=== PATIENT | male | born 1950 | race Caucasian/White ===

== ENCOUNTER → 2018-01-16 | Day surgery (SDC) | payer MEDICARE, OTHER ==
[~2018-01-16] MED LIST: ASPIRIN81 MG PO; FENTANYL CITRATE/PF 100MCG/2 ML INJ ONE; LISINOPRIL10 MG PO; MIDAZOLAM HCL 2 MG/2 ML VIAL ONE; OR PHACO EYE KIT ONE; PREOP PHACO EYE KIT ONE
--- OUTSIDE RECORDS SUMMARY | 2018-01-16 12:23 | XMS REPORT | Summary of Care ---
Author Author Fadia Montes M.A. Unknown Address Unknown Phone Unavailable Care Team Providers Care Improvement Specialist Name Role Phone BERTA Rojas, YAHAIRA Unavailable Unavailable OCTAVIA MANCIA, TOMER Iglesias Unavailable Unavailable OCTAVIA Rojas, TOMER [place] Unavailable Unavailable Unavailable Functional Status Name Dates Details Functional status health issues are not documented Status: Name Dates Details Cognitive status health issues are not documented Status: Problems Name Dates Details Tendonitis (726.90, M77.9) Status: Active Sleep apnea (780.57, G47.30) Status: Active Chronic low back pain (724.2, M54.5) Status: Active Insomnia (780.52, G47.00) Status: Active Preoperative examination (V72.84, Z01.818) Status: Active Pre-diabetes (790.29, R73.03) Status: Active Abnormal EKG (794.31, R94.31) Status: Active Helicobacter pylori infection (041.86, A04.8) Status: Active Essential hypertension, benign (401.1, I10) Status: Active Hearing loss, unspecified hearing loss type, unspecified laterality (389.9, H91.90) Status: Active Medications Name Dates Details Lisinopril 20 MG Oral Tablet TAKE 1 TABLET BY MOUTH DAILY. PATIENT NEEDS OFFICE VISIT Quantity: 7 YAHAIRA HAMPTON M.D. * Start : 29-Sep-2014 Active Aspirin 81 MG TABS TAKE 1 TABLET DAILY. * Refills: 0 Active Omeprazole 20 MG Oral Capsule Delayed Release TAKE 1 CAPSULE BY MOUTH TWICE DAILY * Quantity: 30 Refills: 0 BERTA Rojas, YAHAIRA * Start : 10-Jan-2018 Active Zolpidem Tartrate 10 MG Oral Tablet TAKE 1 TABLET AT BEDTIME NEEDED. * Quantity: 30 Refills: 2 YAHAIRA HAMPTON M.D. * Start : 21-Sep-2015 End : 27-Mar-2018 Active Allergies and Adverse Reactions Name Dates Details No Known Drug Allergies (Allergy) Status: Active Past Medical History Name Dates Details History of essential hypertension (V12.59, Z86.79) Status: Resolved History of Hernia (553.9, K46.9) Status: Resolved History of Prostate cancer (185, C61) Status: Resolved Procedures Procedure Dates Details EKG (In Office) Date: 25-Dec-2017 History of Tonsillectomy With Adenoidectomy Completed History of Hernia Repair Completed History of Prostate Surgery Completed History of Rotator Cuff Repair Completed History of Back Surgery Completed Immunization Name Dates Details Fluzone INJ Lot #: [id number] on: 16-Sep-2013 Influenza on: 27-Aug-2014 Family History Name Dates Details No pertinent family history Status: Active Name Dates Details Family history of cerebrovascular accident (V17.1, Z82.3) Status: Active Social History Name Dates Details - Status: Name Dates Details Never smoker Vital Signs Date Test Result Details 92-[id number]:51 BP Systolic 143 mm[Hg] Status: Comments: Location: LUE; Position: Sitting BP Diastolic 75 mm[Hg] Status: Comments: Location: LUE; Position: Sitting Height 69 in Status: Weight 210.5625 lb Status: Body Mass Index Calculated 31.09 kg/m2 Status: Body Surface Area Calculated 2.11 m2 Status: Temperature 98.6 f Status: Comments: Method: Temporal Heart Rate 65 /min Status: Respiration Rate 16 /min Status: Physical Findings 0 Status: Comments: Pain Scale 14-[id number]:32 BP Systolic 138 mm[Hg] Status: BP Diastolic 75 mm[Hg] Status: Heart Rate 65 /min Status: 50-Ewv-399528:30 BP Systolic 140 mm[Hg] Status: Comments: Location: LUE; Position: Sitting BP Diastolic 75 mm[Hg] Status: Comments: Location: LUE; Position: Sitting Height 69 in Status: Weight 215 lb Status: Body Mass Index Calculated 31.75 kg/m2 Status: Body Surface Area Calculated 2.13 m2 Status: Temperature 98 f Status: Comments: Method: Temporal Heart Rate 64 /min Status: Respiration Rate 16 /min Status: Results Date Description Value Details [id number]-[id number] [[facility]] BASIC METABOLIC PANEL W/EGFR GLUCOSE 105 mg/dl (Above high threshold) Range: 65-99 Comments: Fasting reference interval For someone without known diabetes, a glucose valuebetween 100 and 125 mg/dL is consistent withprediabetes and should be confirmed with afollow-up test. UREA NITROGEN (BUN) 18 mg/dl (Normal) Range: 7-25 CREATININE 0.96 mg/dl (Normal) Range: 0.70-1.25 Comments: For patients >49 years of age, the reference limitfor Creatinine is approximately 13% higher for peopleidentified as -[place]. eGFR NON- 83 {ML/MIN/1.7} (Normal) Range: > OR=60 eGFR 96 {ML/MIN/1.7} (Normal) Range: > OR=60 BUN/CREATININE RATIO NOT APPLICABLE {CALC} Range: 6-22 SODIUM 141 mmol/L (Normal) Range: 135-146 POTASSIUM 4.6 mmol/L (Normal) Range: 3.5-5.3 CHLORIDE 104 mmol/L (Normal) Range: 98-110 CARBON DIOXIDE 30 mmol/L (Normal) Range: 20-31 CALCIUM 9.3 mg/dl (Normal) Range: 8.6-10.3 85-Vat-[id number]:30 [[facility]] CBC (INCLUDES DIFF/PLT) WHITE BLOOD CELL COUNT 4.4 {Thousand/u} (Normal) Range: 3.8-10.8 RED BLOOD CELL COUNT 4.67 {Million/uL} (Normal) Range: 4.20-5.80 HEMOGLOBIN 14.9 g/dl (Normal) Range: 13.2-17.1 HEMATOCRIT 43.7 % (Normal) Range: 38.5-50.0 MCV 93.6 fL (Normal) Range: 80.0-100.0 MCH 31.9 pg (Normal) Range: 27.0-33.0 MCHC 34.1 g/dl (Normal) Range: 32.0-36.0 RDW 12.5 % (Normal) Range: 11.0-15.0 PLATELET COUNT 181 {Thousand/u} (Normal) Range: 140-400 MPV 11.0 fL (Normal) Range: 7.5-12.5 ABSOLUTE NEUTROPHILS 3247 {cells/uL} (Normal) Range: 6197-2993 ABSOLUTE LYMPHOCYTES 620 {cells/uL} (Below low threshold) Range: 850-3900 ABSOLUTE MONOCYTES 440 {cells/uL} (Normal) Range: 200-950 ABSOLUTE EOSINOPHILS 62 {cells/uL} (Normal) Range: 15-500 ABSOLUTE BASOPHILS 31 {cells/uL} (Normal) Range: 0-200 NEUTROPHILS 73.8 % (Normal) LYMPHOCYTES 14.1 % (Normal) MONOCYTES 10.0 % (Normal) EOSINOPHILS 1.4 % (Normal) BASOPHILS 0.7 % (Normal) 01-Hyb-[id number]:30 [[facility]] HEMOGLOBIN A1c Comments: REPORT COMMENT:FASTING:YES HEMOGLOBIN A1c 5.0 {%_of_total} (Normal) Range: <5.7 Comments: For the purpose of screening for the presence ofdiabetes: <5.7% Consistent with the absence of diabetes5.7-6.4% Consistent with increased risk for diabetes (prediabetes)> or=6.5% Consistent with diabetes This assay result is consistent with a decreased riskof diabetes. Currently, no consensus exists regarding use ofhemoglobin A1c for diagnosis of diabetes in children. According to [place] Diabetes Association (ADA)guidelines, hemoglobin A1c <7.0% represents optimalcontrol in non- diabetic patients. Differentmetrics may apply to specific patient populations. Standards of Medical Care in Diabetes(ADA). 28-Dec-20178:10 [[facility]] BASIC METABOLIC PANEL W/EGFR Basic Metabolic Panel Cancel Reason: Ordered In Error 28-Dec-20178:10 [[facility]] CBC (INCLUDES DIFF/PLT) CBC (INCLUDES DIFF/PLT) Cancel Reason: Ordered In Error 28-Dec-20178:10 [[facility]] HEMOGLOBIN A1c HEMOGLOBIN A1c Cancel Reason: Ordered In Error Plan of Care Name Dates Details Planned Observations Planned Goals not documented Instructions Name Dates Details Instructions not documented Encounters Appointment; YAHAIRA HAMPTON M.D. Encounter Diagnosis: Problem not documented On: 26-Jun-2017 13:00 Appointment; MONICA NATHAN P.A. Encounter Diagnosis: Problem not documented On: 25-Dec-2017 11:30 Appointment; YAHAIRA HAMPTON M.D. Encounter Diagnosis: Problem not documented On: 27-Dec-2017 11:00
== END | disposition home or self-care (01) ==
LOC: OR 12:20
PROVIDERS: ATTEND Ophthalmology
DX: H25.11 Age-related nuclear cataract, right eye (principal); I10 Essential (primary) hypertension; R73.09 Other abnormal glucose; R94.31 Abnormal electrocardiogram [ECG] [EKG]; Z79.82 Long term (current) use of aspirin
CPT/HCPCS: 66984; J2250; V2632

== ENCOUNTER → 2018-01-30 | Day surgery (SDC) | payer MEDICARE, OTHER ==
--- OUTSIDE RECORDS SUMMARY | 2018-01-30 10:28 | XMS REPORT | Summary of Care ---
Author Author YAHAIRA HAMPTON M.D. Unknown Address [facility] Phone Unavailable Care Team Providers Care Maxillofacial Pathology Name Role Phone YAHAIRA HAMPTON M.D. Unavailable Unavailable OCTAVIA MANCIA, TOMER Iglesias Unavailable Unavailable TOMER DUDLEY M.D. Unavailable Unavailable BERTA MANCIA, YAHAIRA Arana Unavailable Unavailable Unavailable Unavailable Functional Status Name Dates [...] Active Abnormal EKG (794.31, R94.31) Status: Active Essential hypertension, benign (401.1, I10) Status: Active Hearing loss, unspecified hearing loss type, unspecified laterality (389.9, H91.90) Status: Active Helicobacter pylori infection (041.86, A04.8) Status: Active Hiatal hernia (553.3, K44.9) Status: Active Medications Name Dates Details Lisinopril [...] Name Dates Details Fluzone INJ Lot #: [id number] on: 16-Sep-2013 Influenza on: 27-Aug-2014 Family History Name Dates Details No pertinent family history Status: Active Name Dates Details Family history of cerebrovascular accident (V17.1, Z82.3) Status: Active Social History Name Dates Details - Status: Name Dates Details Never smoker Vital Signs Date Test Result Details [id number]-[id number] BP Systolic 131 mm[Hg] Status: Comments: Location: LUE; Position: Sitting BP Diastolic 87 mm[Hg] Status: Comments: Location: LUE; Position: Sitting Height 69 in Status: Weight 214.3125 lb Status: Body Mass Index Calculated 31.65 kg/m2 Status: Body Surface Area Calculated 2.13 m2 Status: Temperature 97.9 f Status: Comments: Method: Temporal Heart Rate 68 /min Status: Respiration Rate 16 /min Status: Physical Findings 0 Status: Comments: Pain Scale Results Date Description Value Details Results not documented Plan of Care Name Dates Details Planned Observations Planned Goals not documented Planned Encounters Gastroenterology Referral Appointment; EVA WHITE On: 02-Mar-2018 14:00 Appointment; TOMER DÍAZ M.D. On: 02-Mar-2018 14:30 Interventions Provided Plan* pt will consider GI appt after he recovers from cataract surgery * Stay on healthy diet. Discussed food to avoid. * F/u prn Instructions Name Dates Details Instructions not documented Encounters Appointment; YAHAIRA HAMPTON M.D. Encounter Diagnosis: Problem not documented On: 26-Jun-2017 13:00 Appointment; MONICA NATHAN P.A. Encounter Diagnosis: Problem not documented On: 25-Dec-2017 11:30 Appointment; BERTA, YAHAIRA, M.D. Encounter Diagnosis: Problem not documented On: 27-Dec-2017 11:00 Appointment; YAHAIRA HAMPTON M.D. Encounter Diagnosis: Problem not documented On: 29-Jan-2018 13:15
== END | disposition home or self-care (01) ==
LOC: OR 10:26
PROVIDERS: ATTEND Ophthalmology
DX: H25.12 Age-related nuclear cataract, left eye (principal); E11.9 Type 2 diabetes mellitus without complications; I10 Essential (primary) hypertension; R94.31 Abnormal electrocardiogram [ECG] [EKG]; R01.1 Cardiac murmur, unspecified; Z79.82 Long term (current) use of aspirin; Z85.46 Personal history of malignant neoplasm of prostate; Z87.01 Personal history of pneumonia (recurrent)
CPT/HCPCS: 66984; J2250